=== PATIENT | male | born 1990 | race Caucasian/White ===

== ENCOUNTER 2017-11-21 20:59 | Inpatient (IN) | payer OTHER ==
[~2017-11-21] VITALS: Ht 175.3 cm; Wt 99.8 kg
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
[2017-11-21 21:31] VITALS: BP 146/92
[2017-11-21 22:05] LABS: ABSOLUTE BASOPHIL COUNT 0 /CUMM (0.0-0.2); ABSOLUTE EOSINOPHIL COUNT 0.1 /CUMM (0.0-0.7); ABSOLUTE GRANULOCYTE CT 2.3 /CUMM (1.4-6.5); ABSOLUTE LYMPH COUNT 1.5 /CUMM (1.2-3.4); ABSOLUTE MONOCYTE COUNT 0.3 /CUMM (0.10-0.60); BASOPHIL % 0.6 % (0.0-2.0); EOSINOPHIL % 2.4 % (0-5); GRANULOCYTE % 54.7 % (42.2-75.2); HEMATOCRIT 43.4 % (42-52); MEAN CORPUSCULAR HGB 31.6 PG (27.0-31.0); MEAN CORPUSCULAR HGB CONC 34.5 G/DL (33.0-37.0); MEAN CORPUSCULAR VOLUME 91.8 FL (80.0-94.0); MEAN PLATELET VOLUME 9.1 FL (7.4-10.4); PLATELET COUNT 202 /CUMM (130-400); RBC DISTRIBUTION WIDTH 12.7 % (11.5-14.5); RED BLOOD CELL CT 4.73 /CUMM (4.70-6.10); WHITE BLOOD CELL COUNT 4.3 /CUMM (4.8-10.8)
[2017-11-22] VITALS (10 sets, daily range): BP systolic 112–154; BP diastolic 68–99
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
[2017-11-22] MEDS ORDERED: TRAMADOL HCL50 M1 PO (12:32)
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
[2017-11-22] MEDS ORDERED: CELEXA10 M1 (20:03)
[2017-11-22] MEDS ORDERED: CELEXA20 M1 PO (20:45)
[2017-11-22] MEDS ORDERED: LYRICA75 M1 PO (20:50)
[2017-11-22] MEDS ORDERED: OSTERA TABLET1 EACH (20:51)
[2017-11-22] MEDS ORDERED: LEVOTHYROXINE125 MCG PO (21:00)
[2017-11-22] MEDS ORDERED: HYDROXYZINE HCL50 M1 PO (21:03)
[2017-11-22] MEDS ORDERED: EPZICOM TABLET1 EACH PO (21:04)
[2017-11-22] MEDS ORDERED: THIAMINE H100 MG/1 M PO (21:05)
[2017-11-22] MEDS ORDERED: ULTRAM50 M1 PO (21:07)
[2017-11-22] MEDS ORDERED: MOTRIN IB200 M1 PO (21:09)
[2017-11-23 08:02] VITALS: BP 140/98
[2017-11-23 12:00] VITALS: BP 151/93
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
[2017-11-23 15:37] VITALS: BP 164/93
[2017-11-23 15:59] VITALS: BP 142/98
--- NOTE | 2017-11-23 18:06 | History & Physical ---
General Information and HPI MD Statement: I have seen and personally examined SUMIT MORGAN and documented this H&P. The patient is a 27 year old M who presented with a patient stated chief complaint of ETOH intoxication Source of Information: patient Exam Limitations: no limitations History of Present Illness: 27 y/o M with pmh sig for alcohol dependence, anxiety, chronic pain disorder, depression, PTSD, admitted to Inpatient Psychiatry with ongoing alcoholism problem. Patient had recently finished detox at [facility]. He started to drink again. After he drank vodka with juice he felt unsafe and thought that he might do something bad in his family. Therefore he is admitted to Inpatient Psychiatry to get some help and being a safe environment. He denies any current suicidal or homicidal ideation. He does have a psychiatrist at [facility]. He has chronic back pain and shoulder pains. He denies any shortness of breath, urinary compared, nausea, vomiting or abdominal pain. Allergies/Medications Allergies: Coded Allergies: No Known Allergies (11/21/17) Home Med list Abacavir Sulfate & Lamivudine (Epzicom Tablet) (Unknown Strength) TABLET ( Unknown Dose) PO SUPPLEMENT (Reported) Citalopram Hydrobromide (Celexa) 10 MG TABLET DEPRESSION (Reported) Citalopram Hydrobromide (Celexa) 20 MG TABLET 20 MG PO BID DEPRESSION ( Reported) Hydroxyzine Hydrochloride (Atarax) 50 MG TAB 50 MG PO AT BEDTIME SLEEP AID ( Reported) Ibuprofen (Motrin Ib) 200 MG TABLET 600 MG PO PAIN (Reported) Levothyroxine Sodium 125 MCG TABLET 0.125 MG PO DAILY HYPOTHYROID (Reported) Pregabalin (Lyrica) 75 MG CAPSULE 75 MG PO BID NERVE PAIN (Reported) Thiamine (Thiamine HCl) (Unknown Strength) VIAL (Unknown Dose) PO SUPPLEMENT (Reported) Tramadol HCl (Ultram) 50 MG TABLET 50 MG PO TID PAIN (Reported) Tramadol HCl 50 MG TABLET 1 TAB PO BIDP PRN PAIN (Reported) Vit D3 & K/Berberine HCl/Hops (Ostera Tablet) 500 UNIT-500 MCG-90 MG-370 MG TABLET SUPPLEMENT (Reported) Past History Travel History Traveled to [place] past 21 day No Medical History Neurological: ALCOHOL SEIZURE WITHDRAWA Gastrointestinal: upper GI bleed Musculoskeletal: CHRONIC LOWER BACK PAIN Psychiatric: alcohol dependence, anxiety, chronic pain disorder, depression, PTSD Isolation History: Standard Surgical History Surgical History: non-contributory Past Family/Social History Family History Relations & Conditions if any FATHER Relation not specified for: FH: CAD (coronary artery disease) Psychosocial History ETOH Use: alcoholic Illicit Drug Use: denies illicit drug use Review of Systems Review of Systems Constitutional: Reports: see HPI. EENTM: Reports: see HPI. Cardiovascular: Reports: see HPI. Respiratory: Reports: see HPI. GI: Reports: see HPI. Musculoskeletal: Reports: see HPI. Neurological/Psychological: Reports: see HPI. Exam & Diagnostic Data Last 24 Hrs of Vital Signs/I&O Vital Signs Date Time Temp Pulse Resp B/P B/P Pulse O2 O2 Flow FiO2 Mean Ox Delivery Rate 11/23 1559 142/98 11/23 1537 84 164/93 11/23 1200 84 151/93 11/23 1009 69 140/98 11/23 0802 96.2 69 140/98 11/22 1954 98.5 104 154/99 11/22 1840 98.6 84 150/94 Intake & Output 11/23 1600 11/23 0800 11/23 0000 Intake Total Output Total Balance Patient 220 lb Weight Physical Exam General Appearance Alert, Oriented X3, Cooperative, No Acute Distress Skin No Rashes HEENT PERRLA Neck Supple Cardiovascular Regular Rate, Normal S1, Normal S2 Lungs Clear to Auscultation Neurological Cranial Nerves II through XII: Intact Last 24 Hrs of Labs/Oliverio: Laboratory Tests 11/21 11/21 2158 2150 Chemistry Sodium (137 - 145 mmol/L) 144 Potassium (3.5 - 5.1 mmol/L) 4.2 Chloride (98 - 107 mmol/L) 106 Carbon Dioxide (22 - 30 mmol/L) 22 Anion Gap (5 - 16) 16 BUN (9 - 20 mg/dL) 7 L Creatinine (0.7 - 1.2 mg/dL) 0.8 Estimated GFR (>60 ml/min) > 60 BUN/Creatinine Ratio (7 - 25 %) 8.8 Glucose (65 - 99 mg/dL) 97 Calcium (8.4 - 10.2 mg/dL) 9.7 Total Bilirubin (0.2 - 1.3 mg/dL) 0.6 AST (17 - 59 U/L) 44 ALT (21 - 72 U/L) 52 Alkaline Phosphatase (< 127 U/L) 58 Total Protein (6.3 - 8.2 g/dL) 7.9 Albumin (3.5 - 5.0 g/dL) 4.6 Globulin (1.9 - 4.2 gm/dL) 3.3 Albumin/Globulin Ratio (1.1 - 2.2 %) 1.4 Hematology CBC w Diff NO MAN DIFF REQ WBC (4.8 - 10.8 /CUMM) 4.3 L RBC (4.70 - 6.10 /CUMM) 4.73 Hgb (14.0 - 18.0 G/DL) 15.0 Hct (42 - 52 %) 43.4 MCV (80.0 - 94.0 FL) 91.8 MCH (27.0 - 31.0 PG) 31.6 H MCHC (33.0 - 37.0 G/DL) 34.5 RDW (11.5 - 14.5 %) 12.7 Plt Count (130 - 400 /CUMM) 202 MPV (7.4 - 10.4 FL) 9.1 Gran % (42.2 - 75.2 %) 54.7 Lymphocytes % (20.5 - 51.1 %) 35.1 Monocytes % (1.7 - 9.3 %) 7.2 Eosinophils % (0 - 5 %) 2.4 Basophils % (0.0 - 2.0 %) 0.6 Absolute Granulocytes (1.4 - 6.5 /CUMM) 2.3 Absolute Lymphocytes (1.2 - 3.4 /CUMM) 1.5 Absolute Monocytes (0.10 - 0.60 /CUMM) 0.3 Absolute Eosinophils (0.0 - 0.7 /CUMM) 0.1 Absolute Basophils (0.0 - 0.2 /CUMM) 0 Toxicology Urine Opiates Screen (>2000 NG/ML) < 100 Methadone Screen (>300 NG/ML) 44 Barbiturate Screen (>200 NG/ML) < 60 Ur Phencyclidine Scrn (>25 NG/ML) < 6.00 Amphetamines Screen (>1000 NG/ML) < 100 U Benzodiazepines Scrn (>200 NG/ML) < 85 Urine Cocaine Screen (>300 NG/ML) < 50 Urine Cannabis Screen (>50 NG/ML) < 5.00 Serum Alcohol (<10 MG/DL) 162.0 Assessment/Plan Assessment: 27-year-old male with past medical history significant for alcoholism and depression admitted to Inpatient Psychiatry with alcohol intoxication. Patient has high blood pressure. He claims that he never has a history of hypertension in the past but because he is on nicotine patch and gum he thinks that this is contributing to his hypertension. Patient also is withdrawing from alcohol and currently on scheduled and when necessary Ativan. Will watch BP. Patient requests that his scheduled Ativan should be reduced to 1 mg. I believe that up with a psychiatrist. Continue when necessary Ativan. He is also on L- thyroxine and I will add thyroid function testing. Further management will be per psychiatrist. As Ranked By This Provider Problem List: 1. Depression 2. Alcohol abuse Miscellaneous Miscellaneous Documentation Attending Case Discussed With: Luz Marina Smith M.D. Primary Care Physician: Patient Has No Primary Care Dr Patient sees these Specialists Psychiatrist Level of Patient Care: MANOJ Quintero
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
[2017-11-23 19:41] VITALS: BP 150/81
[2017-11-24 07:38] VITALS: BP 139/94
[2017-11-24 12:00] VITALS: BP 131/75
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
[2017-11-24 15:33] VITALS: BP 127/72
[2017-11-24 19:43] VITALS: BP 139/79
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
[2017-11-25 09:23] VITALS: BP 112/73
[2017-11-25 12:05] VITALS: BP 118/63
[2017-11-25 15:38] VITALS: BP 102/59
--- NOTE | 2017-11-25 17:44 | SOCIAL WORKER PROG NOTE PSYCH ---
Social Work Progress Note Progress Note This engineering writer met with patient. He stated that he is interested in going to [facility] in [place]. He reported his mood as "good" and denied SI/HI/AH/VH. Patient stated that his alcohol use ultimately led to his admission to this unit. He denied any other substance use. Patient was agreeable to a family meeting with his , Bianca once discharge plans are more solidified. This engineering writer spoke wtgarland Singletary at the [place] ([phone], ext. [phone]). She stated that a [facility] would not be [facility] by the [facility] as [facility] would not provide [facility] for [facility]. She stated that the patient has insurance independent of the [place] ([employer] and that could therefore submit the referral. Pari confirmed that the patient has an intake on 11/27/17 at 10am for the 21 day program and will keep this intake at this time. (Patient stated that he had previosuly attended the 21 day program and does not want to return). This engineering writer and patient spoke with Raheem Bazzi at [facility] ([phone]). He stated that the referral does need to come from the [place] as the patient is associated with the [place] even though the insurance is separate. This engineering writer and patient call Pari Singlteary back with this information and with Raheem's number (per his offer). Pari stated that she would relay this to the patient's psychiatrist (who was not in the office today). This engineering writer and patient spoke with his ([phone]), at the patient's request, in interest of informing her of the process to him transferring to [facility]. She stated that the patient cannot return home at this time, and while she would like him to go to [facility], patient can go anywhere "as long as he has a place to go. He can't come home." 4:37pm: This engineering writer spoke with Pari Singletary at the [place] regarding the [place]. She explained that even though [employer] is separate from the [place], the patient is "service connected" meaning that no concurrent reviews are needed and he is approved for inpatient admission and that inpatient admission is covered.
[2017-11-25 19:26] VITALS: BP 136/93
[2017-11-26 08:38] VITALS: BP 133/77
[2017-11-26 11:57] VITALS: BP 133/85
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
[2017-11-26 15:36] VITALS: BP 141/78
--- NOTE | 2017-11-26 18:04 | SOCIAL WORKER PROG NOTE PSYCH ---
Social Work Progress Note Progress Note This securities underwriter spoke with Dr. Jones at the [facility] regarding patient's interest in [facility]. Dr. Jones is unable to provide a referral at this time and recommended that the patient attend the intake appointment on 11/27/17 for the 21 Day Program with the [place]. Patient will be able to speak with their director further about his interest in [facility] during the intake. This securities underwriter met with patient and informed him of the conversation with Dr. Jones. He described his mood as "good" and denied SI/HI/AH/VH/violent thoughts. Patient expressed interest in discharging today in order to have some time with his before entering the 21 Day Program at the [place]. He identified a safety plan that he would go to the [facility] ER if feeling unsafe or experiencing an urge to drink. He denied having any access to weapons or guns. He requested that this securities underwriter speak with his , Bianca. This securities underwriter spoke with patient's , Bianca ([phone]) by phone. She did not have any concerns about discharging and did not have any concerns about the patient harming himself. She did report concerns that the patient would harm her if he drank alcohol. She maintained that she would still be supportive of him discharging today. Bianca stated that there are no weapons or guns in the home. She also expressed interest in the patient discharging today. Patient joined this securities underwriter during the call with his . They were informed that this securities underwriter would review with Dr. Morales. Per conversation with Dr. Morales, discharge is anticipated for tomorrow and patient is recommended to go to the intake appointment at the [facility]. This securities underwriter spoke jimmy Yañez at the [facility] who stated that she was unsure if the intake appointment was still available or if it had been cancelled. She will contact the director in the morning and contact this securities underwriter with the intake time. This securities underwriter and patient called his , Bianca, to inform. She agreed to provide transportation from to the [place] and will be contacted with the intake time. Patient approached this securities underwriter during late afternoon and stated that while he feels that the program at [facility] is not helpful, he is still willing to attend the intake. Upon this securities underwriter's inquiry, the patient explained that he felt that the program was not effective as he returned to drinking. However, patient admitted that he had failed to fill his Naltrexone prescription after completing the program resulting in the alcohol use. Patient acknowledged that the 21 day program at the [place] may be worth re-visiting.
[2017-11-26 20:02] VITALS: BP 137/83
[2017-11-27 08:13] VITALS: BP 128/89
[2017-11-27] MEDS ORDERED: FLUTICASONE PRO16 GM NAS (08:57)
[2017-11-27] MEDS ORDERED: GABAPENTIN300 M2 PO ×2 (08:57)
[2017-11-27] MEDS ORDERED: CLONIDINE HCL0.1 MG PO (08:57)
[2017-11-27] MEDS ORDERED: NALTREXONE HCL50 M1 PO (08:57)
--- NOTE | 2017-11-27 09:00 | Patient Discharge Instructions ---
Psych Discharge Inst General Discharge Information Reason for Admission: his was "scared of what he might do". Psy Discharge Primary Diag+ Unspecified Depressive Di Rule out Subs.-induced Mo Other Specified Personali Psy Discharge Secondary Diag+ Alcohol Use Disorder Summary Tests/Major Procedures No significant abnormalities Studies Pending at DC: none Patient Instructions Contact Information Your Psychiatrist on [facility] was Carmen DANIEL,Tray * If you are experiencing an emergency related to this hospitalization, please call [phone] to contact the treating psychiatrist or the psychiatrist-on- call. * To Request a copy of your medical records, please contact the Medical Records Department at [phone]. * To request results of studies pending at the time of discharge, please call [phone]. * Continue your Medications until directed to stop by your Healthcare provider. General Medication Information Please continue to take your new medications and your continued home medications , unless otherwise indicated on your discharge medication list, or unless directed by your MD or TAIL WORKER to stop them. Special Instructions Diet Regular Activity Normal - Tobacco Use Treatment Offered Post DC Medications Offered: Refused Tob Medication Tx Post DC Tobacco Treatment Plan: Refused Tobacco Tx Pgm - EtOH/Drug Use D/O Treatment Offered Post DC Medications Offered: Script Given-See Med List Post DC EtOH/SubAbuse [place] Plan: Other SubAbuse/Dual Pgm Metabolic Screening Not Applicable, patient not on a neuroleptic. Advance Directives Does the Patient have Medical Advance Directives No/Refused further info Does Pt have Psychiatric Advance Directives? No/Refused further info Does Patient have a Designated Surrogate Decision Maker: No Information About Psychiatric Advance Directives Provided? Refused Discharge Plan Post Hospital [facility] Plan: [facility]
--- NOTE | 2017-11-27 09:04 | CP SOUTH PROGRESS NOTE PSYCH ---
Psych (Inpt) Progress Note Progress Note Mental Status Examination: alert, oriented to time + place + person euthymic affect, denied feeling depressed denied suicidal ideation today, denied violent thoughts or homicidal ideation against or anyone else denied hallucinations, denied feeling paranoid, no specific delusions during the interview. coherent, no thought disorder, did not seem to have difficulties with information processing. Did not seem to have short-term memory impairments. Treatment Plan Update: Discharge to intake at [facility]
--- NOTE | 2017-11-27 09:15 | DISCHARGE SUMMARY REPORT-PSYCH ---
Visit Information Visit Dates/Diagnosis' Admission Date: 11/22/17 Discharge Date: 11/27/17 Reason for Admission: his was "scared of what he might do". Psy Discharge Primary Diag: Unspecified Depressive Di Rule out Subs.-induced Mo Other Specified Personali Psy Discharge Secondary Diag: Alcohol Use Disorder Hospital Course Significant Lab Findings: Lab Serum Alcohol 162.0 MG/DL 11/21/172149 Course Complications: The patient did not have any complications while he was on the inpatient psychiatric unit Consultations: The patient had a history and physical examination while he was inpatient psychiatric unit. Physical Exam General Appearance Alert, Oriented X3, Cooperative, No Acute Distress Skin No Rashes HEENT PERRLA Neck Supple Cardiovascular Regular Rate, Normal S1, Normal S2 Lungs Clear to Auscultation Neurological Cranial Nerves II through XII: Intact Last 24 Hrs of Labs/Oliverio: Laboratory Tests 11/21 Chemistry Sodium (137 - 145 mmol/L) 144 Potassium (3.5 - 5.1 mmol/L) 4.2 Chloride (98 - 107 mmol/L) 106 Carbon Dioxide (22 - 30 mmol/L) 22 Anion Gap (5 - 16) 16 BUN (9 - 20 mg/dL) 7 L Creatinine (0.7 - 1.2 mg/dL) 0.8 Estimated GFR (>60 ml/min) > 60 BUN/Creatinine Ratio (7 - 25 %) 8.8 Glucose (65 - 99 mg/dL) 97 Calcium (8.4 - 10.2 mg/dL) 9.7 Total Bilirubin (0.2 - 1.3 mg/dL) 0.6 AST (17 - 59 U/L) 44 ALT (21 - 72 U/L) 52 Alkaline Phosphatase (< 127 U/L) 58 Assessment: 27-year-old male with past medical history significant for alcoholism and depression admitted to Inpatient Psychiatry with alcohol intoxication. Patient has high blood pressure. He claims that he never has a history of hypertension in the past but because he is on nicotine patch and gum he thinks that this is contributing to his hypertension. Patient also is withdrawing from alcohol and currently on scheduled and when necessary Ativan. Will watch BP. Patient requests that his scheduled Ativan should be reduced to 1 mg. I believe that up with a psychiatrist. Continue when necessary Ativan. He is also on L- thyroxine and I will add thyroid function testing. Further management will be per psychiatrist. As Ranked By This Provider Problem List: 1. Depression 2. Alcohol abuse Miscellaneous Miscellaneous Documentation Attending Case Discussed With: Luz Marina Smith M.D. Primary Care Physician: Patient Has No Primary Care Dr Patient sees these Specialists Psychiatrist Level of Patient Care: [facility] DICTATED BY: Luz Marina Smith MD DATE/TIME DICTATED:11/23/17 1755 Allergies: Coded Allergies: No Known Allergies (11/21/17) Hospital Course/[place] Response: 11/23/2017 Impression and Plan: 27-year-old white male who presented to the emergency room on a physician emergency certificate because of intoxication and assaultive behavior against Diagnosis(es): Unspecified depressive disorder Alcohol use disorder severe Rule out other specified personality disorder Treatment Plan: Inpatient psychiatric care with safety checks every 15 minutes Continue medications as prescribed by the [facility] system Increase gabapentin dose to manage his anxiety. Treatment Plan Update: Acetaminophen 650 MG Q4P PRN Cholecalciferol 1,000 IU DAILY Citalopram 20 MG 0800 & 1300 Clonidine 0.1 MG DAILY Fluticasone 2 SPRAY Q24 PRN Folic Acid 1 MG DAILY Gabapentin 600 MG Q4P PRN Gabapentin 900 MG AT BEDTIME Needed for insomnia Haloperidol 5 MG Q6P PRN Haloperidol 5 MG Q6P PRN Hydroxyzine 50 MG AT BEDTIME Ibuprofen 400 MG Q6P PRN Levothyroxine Sodium 0.112 MG DAILY AC Lorazepam 2 MG Q6P PRN Lorazepam 2 MG Q6P PRN Magnesium Hydroxide 30 ML AT BEDTIME PRN Nicotine 14 MG DAILY Nicotine 4 MG Q3P PRN Pregabalin 75 MG 0800 & 1300 Thiamine HCl 100 MG DAILY Tramadol HCl 50 MG Q8P PRN 11/26/2017: No change in medications 11/27/2017: Mental Status Examination: alert, oriented to time + place + person euthymic affect, denied feeling depressed denied suicidal ideation today, denied violent thoughts or homicidal ideation against or anyone else, denied hallucinations, denied feeling paranoid, no specific delusions during the interview. coherent, no thought disorder, did not seem to have difficulties with information processing. Did not seem to have short-term memory impairments. Treatment Plan Update: [facility] - Tobacco Use Treatment Offered Post DC Medications Offered: Refused Tob Medication Tx Post DC Tobacco Treatment Plan: Refused Tobacco Tx Pgm - EtOH/Drug Use D/O Treatment Offered Post DC Medications Offered: Script Given-See Med List Post DC EtOH/SubAbuse [place] Plan: Other SubAbuse/Dual Pgm Metabolic Screening - Screen if on a Neuroleptic Medication - Metabolic screening should include: - Blood Pressure, BMI, Glucose or Hgb A1c, & a - Lipid profile from within the past 365 days. Metabolic Screening Not Applicable, patient not on a neuroleptic. Discharge Instructions General Discharge Information Multiple Neuroleptics: Not Applicable Discharge Diet Regular Discharge Activity Normal DC Disposition: to [facility] inpatient Referrals Ordered Referrals Provider Referral 11/27/17 For Providers: [[facility]] For Groups: [[facility]] [facility] [address] Floor [place], [place] [phone], ext. [phone] Intake appointment: 11/27/17, at 11am Patient will continue to meet with his psychiatrist, Dr. Jones, for medication appointments while in [facility]. Their day program occurs Saturday-Saturday, 9am-2pm. [place] Smoking Cessation Prog 11/27/[address] [place] [address] [phone] [facility] [address] [phone] Group meets every other Saturday at 4pm Next group: 11/27/17, at 4pm Prescriptions Stop taking the following medications: Tramadol HCl (Tramadol HCl) 50 MG TABLET ORAL 2 x Daily as needed as needed for PAIN Qty = 120 Citalopram Hydrobromide (Celexa) 10 MG TABLET Abacavir Sulfate & Lamivudine (Epzicom Tablet) (Unknown Strength) TABLET ORAL Continue taking these medications: Citalopram Hydrobromide (Celexa) 20 MG TABLET 20 Milligram ORAL TWICE DAILY Comments: Last Taken:11/27/17 Time:805 Pregabalin (Lyrica) 75 MG CAPSULE 75 Milligram ORAL TWICE DAILY Comments: Last Taken:11/27/17 Time:805 Vit D3 & K/Berberine HCl/Hops (Ostera Tablet) 500 UNIT-500 MCG-90 MG-370 MG TABLET Comments: Last Taken:CHOLECALCIFEROL 1,000 IU ADM. 6/27/18 Time:08 Levothyroxine Sodium (Levothyroxine Sodium) 125 MCG TABLET 0.125 Milligram ORAL DAILY Comments: Last Taken:11/27/17 Time:08 Hydroxyzine Hydrochloride (Atarax) 50 MG TAB 50 Milligram ORAL AT BEDTIME Comments: Last Taken:11/26/17 Time:2148 Thiamine (Thiamine HCl) (Unknown Strength) VIAL Unknown Dose ORAL Comments: Last Taken:11/27/17 Time:805 Tramadol HCl (Ultram) 50 MG TABLET 50 Milligram ORAL THREE TIMES DAILY Comments: Last Taken:11/26/17 Time:144 Ibuprofen (Motrin Ib) 200 MG TABLET 600 Milligram ORAL Comments: Last Taken:400MG ADM.11/26/17 Time:2008 Start taking the following new medications: Clonidine HCl (Clonidine HCl) 0.1 MG TABLET 0.1 Milligram ORAL DAILY Qty = 1 No Refills Comments: Last Taken:11/27/17 Time:805 Gabapentin (Gabapentin) 300 MG CAPSULE 900 Milligram ORAL AT BEDTIME as needed for INSOMNIA Qty = 1 No Refills Comments: Last Taken:11/25/17 Time:2130 Gabapentin (Gabapentin) 300 MG CAPSULE 600 Milligram ORAL EVERY 4 HOURS NEEDED as needed for ANXIETY Qty = 1 No Refills Comments: Last Taken:11/27/17 Time:807 Fluticasone Propionate (Fluticasone Propionate) 50 MCG/ACTUATION SPRAY.SUSP 2 [place] In the nose EVERY 24 HOURS as needed for nasal/sinus allergies Qty = 1 No Refills Comments: Last Taken:NOT ADM IN HOSPITAL Time: Naltrexone HCl (Naltrexone HCl) 50 MG TABLET 1 Tablet ORAL DAILY Qty = 30 No Refills Comments: Last Taken:NOT ADMINISTERED IN HOSPITAL Studies Pending at Discharge none Copies To: TOAN Baum, [place]
[2017-11-27 09:21] VITALS: BP 126/67
--- NOTE | 2017-11-27 14:54 | SOCIAL WORKER PROG NOTE PSYCH ---
Social Work Progress Note Progress Note This script writer spoke with Pari Singletary at the [facility] ([phone], ext. [phone]) who stated that the patient has an intake appointment scheduled with the 21 day program, "[facility]", today at 11am at the [facility] in [place]. Pari stated that the patient will live at the program and that the patient will attend the day program Saturday-Saturday from 9-2. He will continue to see his psychiatrist, Dr. Jones, for medication management. This script writer met with patient and informed him of the information provided by Pari Singletary and the intake time today, which he accepted. He stated that he will speak with them about [place] as well as the [facility]. Patient stated that his would be providing transportation from to the [facility] today. Patient described his mood as "good" and denied SI/HI/AH/VH. He did not have any concerns about discharge today. He identified a safety plan in which he would immediately inform staff/clinicians at the program as well as utilize the [facility] crisis number. He stated that he also plans to attend AA meetings and contact his sponsor. Multiple attempts were made to fax the patient health summary and W10 to the [facility]. Fax numbers were provided by Pari Singletary: [phone], faxed at 11:55am, indicated a busy signal -[phone], faxed at 12:18pm, indicated a busy signal -[phone], faxed at [phone], indicated a busy signal -the final attempt (see the faxed referrals section of this note) indicated that the fax was sent Faxed Referral(s) Referred To: [facility] ([facility]) Transition of Care Documents sent: Health Summary, W10 Faxed to: [facility]), attn: Dr. Lara/Pari Fax #: [phone] Faxed by: Alyssa Kraus LCSW Date faxed: 11/27/17 Time Faxed: [phone]
== END 2017-11-27 10:23 | DRG 881 ==
LOC: ERH 20:59 → CP SOUTH 11-22 16:53 → ERHI 11-22 16:53 → ENTRNSPT 11-22 18:04 → EDTRNSPTSTS 11-22 18:07 → EDTRNSPT 11-22 18:07 → CP SOUTH 11-22 18:12 → CMPTRNSPT 11-22 18:17 → CP SOUTH 11-22 18:19
PROVIDERS: Emergency Medicine
DX: F32.9 Major depressive disorder, single episode, unspecified (principal); F10.10 Alcohol abuse, uncomplicated
CPT/HCPCS: 36415; 80307; G0463; G0480; J3490